=== PATIENT | male | born 1995 | race Caucasian/White ===

== ENCOUNTER 2017-01-25 22:09 | Emergency (ER) | payer SELFPAY ==
[~2017-01-25] VITALS: Ht 182.9 cm; Wt 77.0 kg
[2017-01-25 22:11] VITALS: TEMP 36.8; Ht 182.9 cm; Wt 77.0 kg
[2017-01-25] MEDS ORDERED: OXYCODONE HCL IR 5 MG TAB (IMMEDIATE RELEASE) PO STA (22:14)
--- NOTE | 2017-01-25 22:58 | DIAGNOSTIC IMAGING REPORT ---
CHEST 2 VIEWS ROUTINE CLINICAL HISTORY: wall fell on left shoulder/upper back COMPARISON STUDY: No previous studies for comparison. FINDINGS: The bones soft tissues and hemidiaphragms are normal. The cardiomediastinal silhouette is normal. The lungs are clear. The pulmonary vasculature is normal. IMPRESSION: Negative chest. Electronically signed by: Erik Espitia M.D. 01/25/2017 10:56 PM Dictated Date/Time: 01/25/2017 10:56 PM
--- NOTE | 2017-01-25 22:58 | DIAGNOSTIC IMAGING REPORT ---
LEFT SCAPULA CLINICAL HISTORY: wall fell on left shoulder/upper back trauma. Pain. COMPARISON: None. DISCUSSION: The bones and joint spaces appear intact. There is no evidence of fracture, dislocation or bony disease. There is no evidence for soft tissue swelling. IMPRESSION: Negative study. Electronically signed by: Erik Espitia M.D. 01/25/2017 10:57 PM Dictated Date/Time: 01/25/2017 10:57 PM
--- NOTE | 2017-01-25 22:59 | DIAGNOSTIC IMAGING REPORT ---
LEFT SHOULDER MIN 2 VIEWS ROUTINE CLINICAL HISTORY: wall fell on left shoulder/upper back COMPARISON: None. DISCUSSION: The bones and joint spaces appear intact. There is no evidence of fracture, dislocation or bony disease. There is no evidence for soft tissue swelling. IMPRESSION: Negative study. Electronically signed by: Erik Espitia M.D. 01/25/2017 10:58 PM Dictated Date/Time: 01/25/2017 10:58 PM
[2017-01-25] MEDS ORDERED: OXYCODONE IR HOME PACK PO ONE (23:15)
--- NOTE | 2017-01-25 23:27 | EMERGENCY ROOM VISIT NOTE ---
History First contact with patient: 22:12 Chief Complaint: SHOULDER PAIN Stated Complaint: L SHOULDER PAIN History of Present Illness The patient is a 21 year old male who presents to the Emergency Room with complaints of left shoulder and left upper back pain after having a wall fall on him 4 days ago. The pain is slightly increased. Currently 7 out of 10. Worse with movement and better with rest. Patient denies chest pain, numbness, tingling, clavicular pain, humeral pain, elbow pain, neck pain, chest pain, headache, head injury, loss of consciousness. No prior fractures to this area. Review of Systems See HPI for pertinent positives & negatives. A total of 6 systems reviewed and were otherwise negative. Past Medical/Surgical History none Social History Smoking Status: Current Every Day Smoker Alcohol Use: none Drug Use: none Current/Historical Medications No Active Prescriptions or Reported Meds Allergies Coded Allergies: No Known Allergies (Unverified , 01/25/17) Physical Exam Vital Signs Date Time Temp Pulse Resp B/P (MAP) Pulse Ox O2 Delivery O2 Flow Rate FiO2 01/25/17 22:11 36.8 93 20 140/83 100 Room Air Physical Exam VITALS: Vitals are noted on the nurse's note and reviewed by myself. Vital signs stable. GENERAL: Pleasant male who appears in pain, in no acute distress, nondiaphoretic , well-developed well-nourished. SKIN: Capillary reflex less than 2 seconds. HEENT: Normocephalic. PERRLA. EOMI. Nares patent. Mucous membranes moist. Neck is supple without nuchal rigidity. Neck: no cervical spine tenderness with full range of motion: HEART Regular rate and rhythm without murmurs gallops or rubs. LUNGS: Clear to auscultation bilaterally without wheezes, rales or rhonchi. No retractions or accessory muscle use. ABDOMEN: Positive bowel sounds x 4. Normal tympanic percussion. Soft, nontender, without masses or organomegaly. Juarez sign negative. No guarding or rebound tenderness. MUSCULOSKELETAL: No gross musculoskeletal defects. No thoracic or lumbar tenderness on exam: Left upper back scapular area tender to palpation easily reproducing symptoms. Left shoulder minimally tender to palpation with increased pain with range of motion. Clavicle nontender to palpation. Left humerus, elbow, forearm nontender to palpation. Radial pulses +2 equal present bilaterally. NEURO: Patient was alert and oriented to person place and time. Normal sensation to light and sharp touch. No focal neurological deficits. Medical Decision & Procedures Medications Administered Medications (Trade) Dose Ordered Sig/Fred Route Start Time Stop Time Status Last Admin Dose Admin Oxycodone HCl (Roxicodone Immediate Rel Tab) 5 mg NOW STAT PO 01/25/17 22:14 01/25/17 22:18 DC 01/25/17 22:23 5 MG ED Course Prior records/ancillary studies reviewed. Triage Nursing notes reviewed. Additional history obtained from family. The patient's history was concerning for left upper back/shoulder pain. Differential diagnosis: Etiologies such as musculoskeletal, disc herniation, fracture, aortic disease, metastatic disease, cord compression, discitis, infection, renal colic, gastrointestinal, acute exacerbation of chronic back pain, sciatica, cauda equina, as well as others were entertained. Physical findings: As above. No focal neurologic findings noted. ER treatment provided: oxyIR On reassessment the patient felt better. Diagnostics interpreted by me: Imaging studies: LEFT SHOULDER MIN 2 VIEWS ROUTINE CLINICAL HISTORY: wall fell on left shoulder/upper back COMPARISON: None. DISCUSSION: The bones and joint spaces appear intact. There is no evidence of fracture, dislocation or bony disease. There is no evidence for soft tissue swelling. IMPRESSION: Negative study. LEFT SCAPULA CLINICAL HISTORY: wall fell on left shoulder/upper back trauma. Pain. COMPARISON: None. DISCUSSION: The bones and joint spaces appear intact. There is no evidence of fracture, dislocation or bony disease. There is no evidence for soft tissue swelling. IMPRESSION: Negative study. CHEST 2 VIEWS ROUTINE CLINICAL HISTORY: wall fell on left shoulder/upper back COMPARISON STUDY: No previous studies for comparison. FINDINGS: The bones soft tissues and hemidiaphragms are normal. The cardiomediastinal silhouette is normal. The lungs are clear. The pulmonary vasculature is normal. IMPRESSION: Negative chest. Electronically signed by: Erik Espitia M.D. This appears to be consistent with left upper back shoulder pain after having a wall fall on him. No fractures and the above workup. Patient was offered CT imaging and declined. I felt this is reasonable. He was placed in a sling and neurovascular status was rechecked after placement and is intact. His advised follow-up family care orthopedics in a few days or here in the ER sooner for severe pain, difficulty breathing, numbness, tingling, worsening signs or symptoms or as needed. Patient was neurovascularly and neurologically intact. He is well-appearing. He ambulates out of the ER without difficulties. The patient's physical examination and detailed history did not reveal any red flags for back/shoulder pain such as those listed in the differential diagnosis. Therefore advanced diagnostics and consultations were felt to be unwarranted. By the evaluation outlined above emergent etiologies such as fracture, aortic disease, metastatic disease, infection, renal colic, gastrointestinal, cord compression, cauda equina, as well as others were deemed relatively unlikely. The pt informed about the findings as listed above. All questions were answered and pleased with the treatment. Return instructions were outlined and the patient was discharged in stable condition. Outpatient prescription management: Oxy IR 5mg 1-2 po Q4 hrs prn Referral: The patient was referred back to orthopedics and/or primary care physician for follow-up in 2 to 3 days for a recheck of the current condition. Medical Decision as above Impression Primary Impression: Injury of left shoulder Departure Information Dispostion Home / Self-Care Condition GOOD Prescriptions No Active Prescriptions or Reported Meds Referrals Ata Delacruz M.D. Forms HOME CARE DOCUMENTATION FORM, IMPORTANT VISIT INFORMATION Patient Instructions My [facility], ED Sprain Shoulder Additional Instructions DO NOT drive, drink alcohol, operate machinery, or perform dangerous activities today. You were given medications in the ER that can affect your ability to safely function or operate a vehicle. Oxycodone (OxyIR) 5mg: Take 1-2 pills every four hours for breakthrough pain. Avoid alcohol, operating machinery or dangerous equipment, working on ladders or roofs, DRIVING, or situations where being under the influence may be dangerous. It is recommended to use an elrp-wyo-tubynud stool softener such as Colace, 100mg twice daily while taking this medication to avoid constipation. Ibuprofen(Motrin, Advil) may be used for fever or pain. Use 600mg every six hours as needed. Take with food. Avoid using more than 2400mg in a 24 hour period. Do not use 2400mg per day for more than three consecutive days without physician direction. Prolonged inappropriate use can lead to stomach upset or ulcers. This medication can be taken if you need to drive, work, or perform activities which may be dangerous when taking narcotic pain medication. (AND/OR) Acetaminophen(Tylenol) may be used for fever or pain. Use 1000mg every six hours as needed. Avoid using more than 3000mg in a 24 hour period. This medication can be taken if you need to drive, work, or perform activities which may be dangerous when taking narcotic pain medication. Ice compresses for 20 minutes at a time four times daily for 2-3 days. Use the sling as instructed. Remove your arm from the sling 4-6 times a day and move all the joints around to keep them loose. Rest and elevate your injury. Continue current medications. Return to the ER immediately for any numbness, tingling, severe pain, extreme swelling in the extremity or as needed. Call Orthopedics in 3-5 days if symptoms persist to arrange follow up for your injury. Problem Qualifiers Primary Impression: Injury of left shoulder Encounter type: initial encounter Qualified Codes: S49.92XA - Unspecified injury of left shoulder and upper arm, initial encounter
[2017-01-25 23:34] VITALS: BP 124/68; PULSE 60; O2SAT 100
== END 2017-01-25 23:35 | disposition home or self-care (01) ==
LOC: C.EDB 22:11
DX: S49.92XA Unspecified injury of left shoulder and upper arm, initial encounter (principal); W20.8XXA Other cause of strike by thrown, projected or falling object, initial encounter; F17.200 Nicotine dependence, unspecified, uncomplicated